=== PATIENT | female | born 2000 | race Caucasian/White ===

== ENCOUNTER 2022-06-11 06:33 | Day surgery (SDC) | payer OTHER ==
[~2022-06-11] VITALS: Ht 162.6 cm; Wt 49.0 kg
[~2022-06-11 06:33] MED LIST: NS 1,000 ML IV ONE
[2022-06-11] MEDS ORDERED: propofoL 200 MG/20 ML VIAL As Ordered ONE ×2 (07:19→07:54)
[2022-06-11] MEDS ORDERED: LIDOCAINE 2% 100MG/5ML SDV (FOR ANES.) As Ordered ONE ×2 (07:19→07:54)
[2022-06-11] MEDS ORDERED: fentaNYL 100 MCG/2 ML INJECTION As Ordered ONE (07:20)
[2022-06-11] MEDS ORDERED: ePHEDrine SULFATE 25 MG/5 ML(5MG/ML) SYRINGE As Ordered ONE (07:43)
[2022-06-11 08:27] VITALS: BP 99/58
== END 2022-06-11 08:58 | disposition home or self-care (01) ==
LOC: M OPP 06:33
PROVIDERS: ATTEND Internal Medicine Gastroenterology
DX: R10.30 Lower abdominal pain, unspecified (principal); R19.4 Change in bowel habit; K29.60 Other gastritis without bleeding; K21.00 Gastro-esophageal reflux disease with esophagitis, without bleeding; R10.13 Epigastric pain; F41.9 Anxiety disorder, unspecified
CPT/HCPCS: 36415; 43239; 45380; 86364; 88305; J3010

== ENCOUNTER → 2023-04-29 | Outpatient (CLI) | payer OTHER ==
[~2023-04-29] MED LIST changes: +GASTROGRAFIN SOLUTION 30ML As Ordered ONE; +ISOVUE-370 76% 100ML VIAL As Ordered ONE; -NS 1,000 ML IV ONE
== END ==
LOC: M RAD 07:23
PROVIDERS: ATTEND Nurse Practitioner Family
DX: R10.9 Unspecified abdominal pain (principal)

== ENCOUNTER 2023-09-20 12:27 | Emergency (ER) | payer OTHER ==
[~2023-09-20] VITALS: Ht 162.6 cm; Wt 50.4 kg
[2023-09-20 12:28] VITALS: TEMP 98
[2023-09-20] MEDS ORDERED: MULTTAB20 PO (13:11)
[2023-09-20] MEDS: NS 1,000 ML IV ONE (13:47)
[2023-09-20] MEDS: ONDANSETRON 4MG 2ML VIAL IV ONE (13:47)
[2023-09-20 13:56] LABS: BASO % 0.3 % (0.0-1.0); EOS # 0.1 10^3/uL (0.0-0.5); EOS % 0.6 % (0.0-3.0); HEMATOCRIT 40.2 % (36.0-47.0); HEMOGLOBIN 13.7 g/dl (12.0-15.5); LYMPH # 1.6 10^3/uL (1.5-5.0); LYMPH % 15.1 % (24.0-44.0); MEAN CORPUSCULAR HEMOGLOBIN 30.4 pg (27.0-33.0); MEAN CORPUSCULAR HGB CONC 34.1 g/dl (32.0-36.5); MEAN CORPUSCULAR VOLUME 89.1 fl (80.0-96.0); MONO # 0.7 10^3/uL (0.0-0.8); MONO % 6.7 % (2.0-8.0); NEUTROPHILS # 8.3 10^3/uL (1.5-8.5); PLATELET COUNT, AUTOMATED 241 10^3/uL (150-450); RED BLOOD COUNT 4.51 10^6/uL (4.00-5.40); WHITE BLOOD COUNT 10.8 10^3/uL (4.0-10.0)
[2023-09-20 14:19] LABS: BILIRUBIN,DIRECT 0.1 MG/DL (<0.4); BILIRUBIN,TOTAL 0.4 MG/DL (0.3-1.2); TOTAL PROTEIN 7.3 G/DL (5.7-8.2)
[2023-09-20 14:33] LABS: HCG, SERUM QUANTITATIVE 74446.4 MIU/ML (<4.2)
[2023-09-20] MEDS ORDERED: PYRI200T6 PO (16:20)
[2023-09-20] MEDS ORDERED: UNIS25TA5 PO (16:20)
[2023-09-20 16:27] VITALS: BP 102/82; O2SAT 99
[2023-09-20] MEDS ORDERED: PYRI25TA2 PO (16:28)
[2023-09-20] MEDS ORDERED: UNIS25TA3 PO (16:28)
== END 2023-09-20 16:29 | disposition home or self-care (01) ==
LOC: M ED 12:27
DX: O21.9 Vomiting of pregnancy, unspecified (principal); Z3A.01 Less than 8 weeks gestation of pregnancy; K21.9 Gastro-esophageal reflux disease without esophagitis; Z79.810 Long term (current) use of selective estrogen receptor modulators (SERMs); Z79.899 Other long term (current) drug therapy
CPT/HCPCS: 76801; 80047; 80076; 81001; 83690; 84702; 85025; 86850; 86900; 86901; 93976; 96374; 99284; J2405

== ENCOUNTER 2023-10-10 06:47 | Emergency (ER) | payer OTHER ==
[~2023-10-10] VITALS: Ht 162.6 cm; Wt 50.0 kg
[~2023-10-10 06:47] MED LIST changes: -GASTROGRAFIN SOLUTION 30ML As Ordered ONE; -ISOVUE-370 76% 100ML VIAL As Ordered ONE; +MULTTAB20 PO; +PYRI200T6 PO; +PYRI25TA2 PO; +UNIS25TA3 PO; +UNIS25TA5 PO
[2023-10-10] MEDS ORDERED: ONDA-83 PO (07:01)
[2023-10-10] MEDS: NS 1,000 ML IV ONE (07:37)
[2023-10-10] MEDS: METOCLOPRAMIDE INJ 10MG/2ML VIAL IV ONE (07:37)
[2023-10-10 07:43] LABS: BASO % 0.4 % (0.0-1.0); EOS # 0.1 10^3/uL (0.0-0.5); EOS % 1.1 % (0.0-3.0); HEMATOCRIT 37.3 % (36.0-47.0); HEMOGLOBIN 12.8 g/dl (12.0-15.5); LYMPH # 1.5 10^3/uL (1.5-5.0); LYMPH % 18.5 % (24.0-44.0); MEAN CORPUSCULAR HEMOGLOBIN 30.1 pg (27.0-33.0); MEAN CORPUSCULAR HGB CONC 34.3 g/dl (32.0-36.5); MEAN CORPUSCULAR VOLUME 87.8 fl (80.0-96.0); MONO # 0.7 10^3/uL (0.0-0.8); MONO % 8.3 % (2.0-8.0); NEUTROPHILS # 5.9 10^3/uL (1.5-8.5); NEUTROPHILS % 71.3 % (36.0-66.0); PLATELET COUNT, AUTOMATED 236 10^3/uL (150-450); RED BLOOD COUNT 4.25 10^6/uL (4.00-5.40); WHITE BLOOD COUNT 8.3 10^3/uL (4.0-10.0)
[2023-10-10 08:12] LABS: BLOOD UREA NITROGEN 9 MG/DL (9-23); CALCIUM LEVEL 8.5 MG/DL (8.5-10.1); CARBON DIOXIDE LEVEL 24 MMOL/L (20-31); CHLORIDE LEVEL 106 MMOL/L (98-107); CREATININE FOR GFR 0.61 MG/DL (0.55-1.30); GLOMERULAR FILTRATION RATE > 60.0 (>60); GLUCOSE, FASTING 87 MG/DL (60-100); POTASSIUM SERUM 3.6 MMOL/L (3.5-5.1); SODIUM LEVEL 139 MMOL/L (136-145)
[2023-10-10] MEDS ORDERED: REGL10TA6 PO (11:33)
[2023-10-10 11:50] VITALS: BP 111/53; TEMP 99.1; O2SAT 97
== END 2023-10-10 11:52 | disposition home or self-care (01) ==
LOC: M ED 07:18
DX: O21.1 Hyperemesis gravidarum with metabolic disturbance (principal); Z3A.10 10 weeks gestation of pregnancy; Z79.810 Long term (current) use of selective estrogen receptor modulators (SERMs); Z79.899 Other long term (current) drug therapy
CPT/HCPCS: 76801; 80048; 81001; 85025; 96361; 96374; 99284; J2765

== ENCOUNTER 2024-02-08 01:33 | Outpatient (CLI) | payer OTHER ==
[~2024-02-08] VITALS: Ht 162.6 cm; Wt 60.0 kg
[~2024-02-08 01:33] MED LIST changes: +ONDA-83 PO; +REGL10TA6 PO
[2024-02-08 01:39] VITALS: BP 122/69
[2024-02-08 03:39] VITALS: BP 110/61
== END 2024-02-08 03:41 | disposition home or self-care (01) ==
LOC: M LDO 01:33
PROVIDERS: ATTEND Advanced Practice Midwife
DX: O26.853 Spotting complicating pregnancy, third trimester (principal); Z3A.28 28 weeks gestation of pregnancy
CPT/HCPCS: 59025; 76815; G0463